=== PATIENT | female | born 2000 ===

== ENCOUNTER → 2018-03-11 | Outpatient (CLI) | payer OTHER ==
--- NOTE | 2018-03-11 16:00 | DIAGNOSTIC IMAGING REPORT ---
RIGHT KNEE 4 VIEWS CLINICAL HISTORY: Right knee pain. FINDINGS: AP, lateral, tunnel, and sunrise views of the right knee are obtained. No prior studies are available for comparison at the time of dictation. The skeletal structures are well mineralized. No fracture is seen. The joint spaces are well-maintained. There is no evidence of osteochondral defect on the tunnel image. There is no joint effusion. The overlying soft tissues are within normal limits. IMPRESSION: Unremarkable radiographic assessment of the right knee. Electronically signed by: Segundo Nguyen M.D. 03/11/2018 3:59 PM Dictated Date/Time: 03/11/2018 3:58 PM
== END | disposition home or self-care (01) ==
LOC: C.RDSM 14:53
PROVIDERS: ATTEND Internal Medicine
DX: M25.561 Pain in right knee (principal)